=== PATIENT | male | born 1975 | race Caucasian/White ===

== ENCOUNTER 2019-01-26 10:49 | Inpatient (IN) ==
[2019-01-26] MEDS ORDERED: 0.9 % SODIUM CHLORIDE 1,000 ML IV SCH ×2 (11:15→14:21)
--- NOTE | 2019-01-26 11:24 | Emergency Department Note ---
Skin/Abscess/FB HPI - General Chief complaint: Skin/Abscess/Foreign Body Stated complaint: Cellulitis Time Seen by Provider: 01/26/19 10:50 Mode of arrival: wheelchair - History of Present Illness HPI Narrative: 43-year-old male presents with cellulitis of the left lower leg. Patient states he is not getting any better and is getting worse. Onset last Thursday, 1 week ago. States the first 48 hours he had fever, chills, nausea and vomiting. He finally got out of bed and realized that his left lower leg was red and swollen and warm to touch. He came in to be seen on that Thursday and was started on IV outpatient antibiotics. He has been receiving IV vancomycin but they are having a hard time getting the levels high enough. His legs continue to get worse instead of better. States he continues to have nausea and vomiting and fever and chills. No diarrhea. Concerned that he is not getting better. - Related Data Home Medications Medication Instructions Recorded Confirmed Lisinopril [Zestril] 7.5 mg PO DAILY 01/22/15 01/26/19 DULoxetine [Cymbalta] 90 mg PO DAILY 01/26/19 01/26/19 Methocarbamol [Robaxin-750] 750 mg PO DAILY 01/26/19 01/26/19 traMADol [Ultram] 50 mg PO Q6HP PRN 01/26/19 01/26/19 Previous Rx's Medication Instructions Recorded Aspirin [Ecotrin] 325 mg PO BID tab.ec 02/21/15 Allergies Allergy/AdvReac Type Severity Reaction Status Date / Time No Known Drug Allergies Allergy Verified 01/22/19 06:57 Review of Systems All systems ED: reviewed and negative except as stated. Past Medical History - Past Medical History [facility], [facility] Narrative: Medical History Knee osteoarthritis (Acute) Knee osteoarthritis (Acute) Headache (Acute) Dehydration (Acute) Soft tissue injury of knee (Acute) Acute bronchitis (Acute) Medical history: Reports: hypertension, obesity, other (glaucoma. Obstructive sleep apnea) Psychiatric history: Reports: depression Surgical history ED: Reports: non-contributory - Social History smoking status: Never smoker Alcohol use: Reports: Rarely Drug use: Reports: none Physical Exam General appearance: alert Head: atraumatic, normocephalic, normal inspection Eye: Present: normal appearance. Absent: conjunctival injection ENT: Present: mucous membranes moist Chest: Present: symmetric chest wall rise Respiratory: Present: normal lung sounds bilaterally. Absent: respiratory distress, rales/crackles, accessory muscle use Cardiovascular: Present: regular rate, normal heart sounds Extremities: Absent: normal inspection (Left lower leg from the knee to the ankle with significant moderate edema, redness, and hot to touch. No induration or drainage. Sensation intact) Neurological: Present: alert, oriented X3 Psychiatric: Present: normal affect, normal mood Skin: Present: warm, dry, intact, normal color Course Course Narrative: @1312 I spoke with hospitalist Dr. Billy who agrees to accept this patient Vital Signs Temperature 97.7 F 01/26/19 10:50 Pulse Rate 90 01/26/19 10:50 Respiratory Rate 16 01/26/19 10:50 Blood Pressure 141/77 01/26/19 10:50 Pulse Oximetry (%) 95 01/26/19 10:50 Temperature 97.7 F 01/26/19 10:50 Pulse Rate 85 01/26/19 12:49 Respiratory Rate 16 01/26/19 10:50 Blood Pressure 141/77 01/26/19 10:50 Pulse Oximetry (%) 95 01/26/19 12:49 Skin/Abscess/Foreign Body - Lab Data Result diagrams: 01/26/19 11:29 01/26/19 11:02 Lab Results 01/26/19 01/26/19 01/26/19 Range/Units 11:02 11:28 11:29 WBC 7.5 (4.5-11.0) K/mcL RBC 3.83 L (4.50-5.90) M/mcL Hgb 12.0 L (13.5-16.5) g/dL Hct 36.0 L (41.0-55.0) % MCV 93.9 (80.0-100.0) fL MCH 31.4 (26.0-34.0) pg MCHC 33.4 (31.0-36.0) g/dL RDW 13.3 (11.5-14.5) % Plt Count 269 (140-440) K/mcL MPV 7.8 (7.4-10.4) fL Total Counted 100 Seg Neutrophils % 63 (38-78) % Band Neutrophils % Not Reportable Lymphocytes % 22 (15-49) % Monocytes % (Manual) 9 (1-12) % Eosinophils % (Manual) 5 (0-7) % Basophils % (Manual) 1 (0-2) % Platelet Estimate Normal (NORMAL) RBC Morphology Normal (NORMAL) VBG Lactic Acid 1.4 (0.5-2.0) mmol/L Sodium 137 (133-145) mmol/L Potassium 3.9 (3.3-5.1) mmol/L Chloride 98 (96-108) mmol/L Carbon Dioxide 29 (22-30) mmol/L Anion Gap 10.0 (8-16) BUN 13 (6-20) mg/dl Creatinine 1.1 (0.7-1.2) mg/dl GFR Calculation 82 Glucose 86 (70-105) mg/dL Calcium 9.1 (8.6-10.4) mg/dl Total Bilirubin 0.3 (0.0-1.0) mg/dL AST 52 H (0-37) U/l ALT 88 H (0-40) U/l Alkaline Phosphatase 79 (39-117) U/L Total Protein 8.0 (5.9-8.4) gm/dL Albumin 3.5 (3.2-5.2) gm/dL Globulin 4.5 H (2.2-3.7) gm/dL Albumin/Globulin Ratio 0.8 L (1.0-2.3) Procalcitonin (<0.10) ng/mL 01/26/19 Range/Units 11:29 WBC (4.5-11.0) K/mcL RBC (4.50-5.90) M/mcL Hgb (13.5-16.5) g/dL Hct (41.0-55.0) % MCV (80.0-100.0) fL MCH (26.0-34.0) pg MCHC (31.0-36.0) g/dL RDW (11.5-14.5) % Plt Count (140-440) K/mcL MPV (7.4-10.4) fL Total Counted Seg Neutrophils % (38-78) % Band Neutrophils % Lymphocytes % (15-49) % Monocytes % (Manual) (1-12) % Eosinophils % (Manual) (0-7) % Basophils % (Manual) (0-2) % Platelet Estimate (NORMAL) RBC Morphology (NORMAL) VBG Lactic Acid (0.5-2.0) mmol/L Sodium (133-145) mmol/L Potassium (3.3-5.1) mmol/L Chloride (96-108) mmol/L Carbon Dioxide (22-30) mmol/L Anion Gap (8-16) BUN (6-20) mg/dl Creatinine (0.7-1.2) mg/dl GFR Calculation Glucose (70-105) mg/dL Calcium (8.6-10.4) mg/dl Total Bilirubin (0.0-1.0) mg/dL AST (0-37) U/l ALT (0-40) U/l Alkaline Phosphatase (39-117) U/L Total Protein (5.9-8.4) gm/dL Albumin (3.2-5.2) gm/dL Globulin (2.2-3.7) gm/dL Albumin/Globulin Ratio (1.0-2.3) Procalcitonin 0.40 (<0.10) ng/mL Disposition Pt seen by MANAGER ACTION/PA only: Yes Clinical Impression: Cellulitis of left lower extremity, Failure of outpatient treatment Disposition: [facility] Condition: Good Referrals: Myrna Robb PA-C [Primary Care Provider] - Time of Disposition: 13:13
[2019-01-26 12:11] LABS: Mean Cell Volume 93.9 fL (80.0-100.0); Mean Corpuscular HGB Conc 33.4 g/dL (31.0-36.0); Mean Platelet Volume 7.8 fL (7.4-10.4); Platelet Count 269 K/mcL (140-440); RBC 3.83 M/mcL (4.50-5.90); Red Cell Distribution Width 13.3 % (11.5-14.5); WBC 7.5 K/mcL (4.5-11.0)
[2019-01-26 12:32] LABS: Basophils % (Manual) 1 % (0-2); Eosinophils % (Manual) 5 % (0-7); Lymphocytes % 22 % (15-49); Monocytes % (Manual) 9 % (1-12); Platelet Estimate NORMAL (NORMAL); RBC Morphology NORMAL (NORMAL); Segmented Neutrophils % 63 % (38-78)
[2019-01-26 12:34] LABS: ALT/SGPT 88 U/l (0-40); AST/SGOT 52 U/l (0-37); Albumin 3.5 gm/dL (3.2-5.2); Albumin/Globulin Ratio 0.8 (1.0-2.3); Alkaline Phosphatase 79 U/L (39-117); Bilirubin,Total 0.3 mg/dL (0.0-1.0); Blood Urea Nitrogen 13 mg/dl (6-20); Calcium 9.1 mg/dl (8.6-10.4); Carbon Dioxide 29 mmol/L (22-30); Chloride 98 mmol/L (96-108); Globulin 4.5 gm/dL (2.2-3.7); Glomerular Filtration Rate 82; Glucose 86 mg/dL (70-105)
[2019-01-26] MEDS ORDERED: PIPERACILLIN SODIUM/TAZOBACTAM 3.375 GM in DEXTROSE 5% IN WATER 50 ML IV ONE (13:12)
--- NOTE | 2019-01-26 13:16 | Internal Med History&Physical ---
Medical - H&P: [facility] Patient information: Note initiated : 01/26/19 at 1:14 pm Service Date, if different from initiated Date: [] Patient: Deven Irwin 43 y/o M admitted on for Cellulitis. Chief Complaint: [] Chief complaint: LLE cellulitis History of present illness: Mr. Irwin is a 43 year old M morbidly obese gentleman with BMI over 55 who presents to the ER with worsening left lower extremity swelling, redness pain and shaking chills and fever. Patient apparently at the symptoms started a few days ago. He was evaluated in the ER on the fourth and was started on vancomycin outpatient for lower extremity cellulitis. Work-up including negative Doppler for DVT. However despite continue antibiotics patient noticed increasing redness/swelling and pain along with persistent fever. He was subsequently evaluated in the ER today and after blood cultures were drawn hospitalist service was consulted. At the time of evaluation patient is alert and oriented. He was able to endorse history as above. He denies recent trauma, recurrent boils or cysts skin infection. He does endorse to a prior left lower extremity injury leading to a foot drop. He lives at home along with his family. He denies associated arthralgia myalgia headache, cough productive sputum or diarrhea. Review of systems A 10 point review of system was performed and is negative except for one discussed above Medical - H&P: PM[facility] Medical history: Medical history: hypertension, obesity, other (glaucoma. Obstructive sleep apnea) Psychiatric history: Reports: depression Surgical history ED: Reports: non-contributory - Social History smoking status: Never smoker Alcohol use: Reports: Rarely Drug use: Reports: none Medical - H&P: Meds Home Medications Medication Instructions Recorded Confirmed Type Lisinopril [Zestril] 7.5 mg PO DAILY 01/22/15 01/26/19 History Aspirin [Ecotrin] 325 mg PO BID tab.ec 02/21/15 01/26/19 Rx DULoxetine [Cymbalta] 90 mg PO DAILY 01/26/19 01/26/19 History Methocarbamol [Robaxin-750] 750 mg PO DAILY 01/26/19 01/26/19 History traMADol [Ultram] 50 mg PO Q6HP PRN 01/26/19 01/26/19 History Allergies Allergy/AdvReac Type Severity Reaction Status Date / Time No Known Drug Allergies Allergy Verified 01/22/19 06:57 Medical - H&P: Exam - Constitutional Vitals: Temp Pulse Resp BP Pulse Ox 97.7 F 85 16 141/77 95 01/26/19 10:50 01/26/19 12:49 01/26/19 10:50 01/26/19 10:50 01/26/19 12:49 General appearance: morbidly obese Exam: Alert and oriented Morbidly obese Head normocephalic Oral cavity dry Eye movement symmetrical no ear nose discharge Neck no lymphadenopathy S1-S2 regular rhythm no murmur Diminished breath sounds bases Abdomen soft nontender Lower extremity-left lower extremity significantly swollen/tender with erythema extending from ankle to the knee Skin otherwise no suspicious lesion Psych alert cooperative Neuro nonfocal Medical - H&P: Reslt - Labs CBC & Chem 7: 01/26/19 11:29 01/26/19 11:02 Labs: Short CBC 01/26/19 Range/Units 11:29 WBC 7.5 (4.5-11.0) K/mcL Hgb 12.0 L (13.5-16.5) g/dL Hct 36.0 L (41.0-55.0) % Plt Count 269 (140-440) K/mcL BMP 01/26/19 11:02 Sodium 137 Potassium 3.9 Chloride 98 Carbon Dioxide 29 BUN 13 Creatinine 1.1 Glucose 86 Calcium 9.1 Liver Function 01/26/19 Range/Units 11:02 Total Bilirubin 0.3 (0.0-1.0) mg/dL AST 52 H (0-37) U/l ALT 88 H (0-40) U/l Alkaline Phosphatase 79 (39-117) U/L Albumin 3.5 (3.2-5.2) gm/dL Medical - H&P: A/P (1) Cellulitis of left lower extremity Current visit: Yes Status: Acute * Cellulitis left lower extremity -continue antibiotic coverage on vancomycin/Rocephin-, pancultures, limb elevation, lower extremity ultrasound to rule out abscess, wound care consult. De-escalate based on culture sensitivities. * Pain management as needed opioids/Tylenol * Hypertension continue SUHA inhibitor * Anxiety disorder continue duloxetine * Morbid obesity with sleep apnea * Full code * Prophylaxis heparin Plan * Inpatient admission * Antibiotic coverage/limb elevation/diuretics * prior medical condition management and home meds * Wound care consult * Lower extremity ultrasound
[2019-01-26] MEDS ORDERED: ONDANSETRON 4 MG/2 ML VIAL IV PRN (14:21)
[2019-01-26] MEDS ORDERED: VANCOMYCIN PER PHARMACY IV SCH (14:21)
[2019-01-26] MEDS ORDERED: MAGNESIUM SULFATE 2 GM/50 ML BAG IV PRN (14:21)
[2019-01-26] MEDS ORDERED: ACETAMINOPHEN 325 MG TABLET PO PRN (14:21)
[2019-01-26] MEDS ORDERED: POTASSIUM CHLORIDE 20 MEQ PACKET PO PRN (14:21)
[2019-01-26] MEDS: 0.9 % SODIUM CHLORIDE 10 ML SYRINGE IV SCH ×2 (14:31→23:47)
[2019-01-26] MEDS ORDERED: cefTRIAXone 2 GM VIAL ONE (15:11)
[2019-01-26] MEDS: cefTRIAXone 2 GM in DEXTROSE 5% IN WATER 50 ML IV SCH (15:12)
[2019-01-26] MEDS ORDERED: FUROSEMIDE 40 MG/4 ML VIAL IV SCH (16:00)
[2019-01-26] MEDS: VANCOMYCIN 1,500 MG in 0.9 % SODIUM CHLORIDE 500 ML IV SCH ×2 (16:47→23:47)
[2019-01-26 17:22] LABS: Appearance,Urine CLEAR; Bilirubin,Urine NEG (NEG); Color,Urine YELLOW; Glucose,Urine (UA) NEGATIVE (NEG); Ketones,Urine NEG (NEG); Leukocyte Esterase,Urine NEG /uL (NEG); Nitrate,Urine NEG (NEG); Protein,Urine NEG (NEG); Specific Gravity,Urine 1.016 (1.000-1.035); Urine Blood NEG mg/dL (<0.03); Urobilinogen,Urine NEG (NEG)
[2019-01-26 17:28] LABS: Amphetamine Screen,Urine NONE DETECTED (NONDETECTED); Barbiturate Screen,Urine NONE DETECTED (NONDETECTED); Benzodiazepines Screen,Urine NONE DETECTED (NONDETECTED); Cannabinoid Screen,Urine NONE DETECTED (NONDETECTED); Cocaine Screen,Urine NONE DETECTED (NONDETECTED); Opiate Screen,Urine NONE DETECTED (NONDETECTED); Oxycodone, Urine Screen NONE DETECTED (NONDETECTED); Phencyclidine Screen,Urine NONE DETECTED (NONDETECTED)
[2019-01-26] MEDS: traMADol 50 MG TABLET PO PRN (19:52)
[2019-01-26] MEDS: ASPIRIN 325 MG ENTERIC COATED TABLET PO SCH (21:12)
[2019-01-26] MEDS: HEPARIN 5,000 UNIT/ML VIAL SQ SCH (21:12)
[2019-01-26] MEDS: DOCUSATE SODIUM 100 MG CAPSULE PO SCH (21:12)
[2019-01-26] MEDS: MELATONIN 3 MG TABLET PO PRN (21:12)
[2019-01-26] MEDS: SENNOSIDES/DOCUSATE SODIUM 1 TAB TABLET PO SCH (21:12)
[2019-01-26] MEDS: ACETAMINOPHEN 1,000 MG/100 ML BOTTLE IV PRN (21:16)
[2019-01-27] MEDS: ACETAMINOPHEN 1,000 MG/100 ML BOTTLE IV PRN ×2 (04:55→16:22)
[2019-01-27] MEDS: 0.9 % SODIUM CHLORIDE 10 ML SYRINGE IV SCH ×5 (04:55→20:59)
--- NOTE | 2019-01-27 04:55 | Ultrasound Report ---
CLINICAL INFORMATION: Fluid collection left thigh and calf COMPARISON: None. FINDINGS: Cellulitis is seen throughout the left thigh and calf, however there is no fluid collection to suggest discrete abscess IMPRESSION: Diffuse cellulitis. No evidence of abscess Interpreted and Authenticated by: Kulwinder Castillo 01/27/19
[2019-01-27 05:38] LABS: Hematocrit 33.2 % (41.0-55.0); Hemoglobin 11.2 g/dL (13.5-16.5); Mean Corpuscular HGB Conc 33.7 g/dL (31.0-36.0); Mean Platelet Volume 7.4 fL (7.4-10.4); Platelet Count 285 K/mcL (140-440); RBC 3.53 M/mcL (4.50-5.90); Red Cell Distribution Width 13.3 % (11.5-14.5); WBC 5.6 K/mcL (4.5-11.0)
[2019-01-27 06:04] LABS: ALT/SGPT 77 U/l (0-40); AST/SGOT 44 U/l (0-37); Albumin 3.2 gm/dL (3.2-5.2); Albumin/Globulin Ratio 0.8 (1.0-2.3); Alkaline Phosphatase 72 U/L (39-117); Bilirubin,Direct < 0.2 mg/dL (0.0-0.3); Bilirubin,Total 0.3 mg/dL (0.0-1.0); Blood Urea Nitrogen 15 mg/dl (6-20); C-Reactive Protein 11.5 mg/dl (0.0-0.8); Carbon Dioxide 29 mmol/L (22-30); Chloride 100 mmol/L (96-108); Globulin 4.2 gm/dL (2.2-3.7); Glomerular Filtration Rate 105; Glucose 120 mg/dL (70-105); Lactate Dehydrogenase 217 U/L (94-250); Phosphorous 3.8 mg/dL (2.7-4.5); Triglycerides 69 mg/dl (<150); Uric Acid 5.9 mg/dL (2.5-8.0)
[2019-01-27] MEDS: FUROSEMIDE 40 MG/4 ML VIAL IV SCH ×3 (07:55→21:24)
--- NOTE | 2019-01-27 08:07 | Internal Med Progress Note ---
Medical - PN: Subj Patient information: Note initiated : 01/27/19 at 8:04 am Service Date, if different from initiated Date: [] Patient: Deven Irwin 43 y/o M admitted on 01/26/19 for Cellulitis. Chief Complaint: [] Interval history: Mr. Irwin is a 43 year old M morbidly obese gentleman with BMI over 55 who pres ents to the ER with worsening left lower extremity swelling, redness pain and shaking chills and fever. Patient apparently at the symptoms started a few days ago. He was evaluated in the ER on the fourth and was started on vancomycin outpatient for lower extremity cellulitis. Work-up including negative Doppler for DVT. However despite continue antibiotics patient noticed increasing redness/swelling and pain along with persistent fever. He was subsequently evaluated in the ER today and after blood cultures were drawn hospitalist service was consulted. At the time of evaluation patient is alert and oriented. He was able to endorse history as above. He denies recent trauma, recurrent boils or cysts skin infection. He does endorse to a prior left lower extremity injury leading to a foot drop. He lives at home along with his family. 01/27-patient clinically improved. Able to bear weight. Swelling along with redness much improved. White count normal. No overnight fever chills. Pain much improved. No concerns expressed to nursing staff. Continuing antibiotic coverage. Continue diuresis/Limb elevation - Constitutional Vitals: Vital Signs Temp Pulse Resp BP Pulse Ox 97.8 F 76 18 114/63 96 01/27/19 07:14 01/27/19 07:14 01/27/19 07:14 01/27/19 07:14 01/27/19 07:14 Period Temp Pulse Resp BP Sys/[place]oya Pulse Ox Last 24 Hr 97.0 F-98.7 F 61-90 12-20 114-144/63-81 95-100 Intake and Output 01/26/19 01/27/19 01/27/19 21:59 05:59 13:59 Intake Total 1259 725 Output Total 1000 750 Balance 259 -25 Weight 415 lb Intake & Output: Intake & Output 01/26/19 01/27/19 01/27/19 21:59 05:59 13:59 Intake Total 1259 725 Output Total 1000 750 Balance 259 -25 Weight 415 lb Intake: IV 1019 600 Sodium Chloride 0.9% 1,000 ml @ 319 125 mls/hr IV .Q8H [facility] Rx#: [id number] Zosyn 3.375 gm In Dextrose 5% 50 in Water 50 ml @ 100 mls/hr IV ONCE ONE Rx#:[id number] Vancomycin 1,500 mg In Sodium 500 500 Chloride 0.9% 500 ml @ 333.3 mls/hr IV Q8H [facility] Rx#:[id number] Rocephin 2 gm In Dextrose 5% in 50 Water 50 ml @ 100 mls/hr IV Q24H [facility] Rx#:[id number] Oral 240 125 Output: Void Amount 1000 750 Other: Meal Lunch Percent of Meal Consumed 100% Feeding Ability Independent Urine Appearance Clear Clear Urine Color Bright Yellow Light [place] Urine Odor Normal Strong Stool Size Moderate Stool Consistency Formed # Bowel Movements 1 General appearance: no acute distress Exam: Morbidly obese Nonlabored breathing Improving lymphedema/erythema left lower extremity No anxiety Medical - PN: Obj Da - Labs CBC & Chem 7: 01/27/19 04:28 01/27/19 04:29 Labs: Abnormal Lab Results 01/27/19 01/27/19 01/26/19 04:29 04:28 11:29 RBC 3.53 L 3.83 L Hgb 11.2 L 12.0 L Hct 33.2 L 36.0 L Glucose 120 H AST 44 H ALT 77 H C-Reactive Protein 11.5 H Globulin 4.2 H Albumin/Globulin Ratio 0.8 L 01/26/19 11:02 RBC Hgb Hct Glucose AST 52 H ALT 88 H C-Reactive Protein Globulin 4.5 H Albumin/Globulin Ratio 0.8 L Meds: Medications Acetaminophen (Tylenol) 650 mg PO Q4-6HP PRN PRN Reason: PAIN/FEVER > 101 Aspirin (Ecotrin) 325 mg PO BID [facility] Last Admin: 01/26/19 21:12 Dose: 325 mg Documented by: Docusate Sodium (Colace) 100 mg PO BID [facility] Last Admin: 01/26/19 21:12 Dose: 100 mg Documented by: Duloxetine HCl (Cymbalta) 90 mg PO DAILY [facility] Furosemide (Lasix) 20 mg IV Q8 [facility] Last Admin: 01/27/19 07:55 Dose: 20 mg Documented by: Heparin Sodium (Porcine) (Heparin) 5,000 unit SQ Q12 [facility] Last Admin: 01/26/19 21:12 Dose: 5,000 unit Documented by: Acetaminophen (Ofirmev) 1,000 mg in 100 mls @ 200 mls/hr IV Q6HP PRN PRN Reason: PAIN/FEVER > 101 Last Infusion: 01/27/19 05:45 Dose: Infused Documented by: Magnesium Sulfate (Magnesium Sulfate) 2 gm in 50 mls @ 50 mls/hr IV UD PRN PRN Reason: MG = or < 1.7 Ceftriaxone Sodium 2 gm/ (Dextrose) 50 mls @ 100 mls/hr IV Q24H [facility]; Protocol Last Infusion: 01/26/19 15:42 Dose: Infused Documented by: Vancomycin HCl 1,500 mg/ (Sodium Chloride) 500 mls @ 333.3 mls/hr IV Q8H [facility] Last Infusion: 01/27/19 01:50 Dose: Infused Documented by: Iron Carb/Multivit/[place]/Folic Acid (Multivitamin W/Minerals) 1 tab PO DAILY [facility] Lisinopril (Zestril) 7.5 mg PO DAILY [facility] Melatonin (Melatonin 3mg Tablet) 3 mg PO HSP PRN PRN Reason: Insomnia Last Admin: 01/26/19 21:12 Dose: 3 mg Documented by: Methocarbamol (Robaxin) 750 mg PO DAILY [facility] Ondansetron HCl (Zofran) 4 mg IV Q4-6HP PRN PRN Reason: Nausea And Vomiting Potassium Chloride (Klor-Con) 40 meq PO DAILYP PRN PRN Reason: K+ < 3.5 Senna/Docusate Sodium (Senna Plus Tablet) 1 tab PO HS [facility] Last Admin: 01/26/19 21:12 Dose: 1 tab Documented by: Sodium Chloride (Saline Flush) 10 ml IV Q8 [facility] Last Admin: 01/27/19 04:55 Dose: 10 ml Documented by: Tramadol HCl (Ultram) 50 mg PO Q6HP PRN PRN Reason: Pain Last Admin: 01/26/19 19:52 Dose: 50 mg Documented by: Vancomycin HCl (Vancomycin Per Pharmacy) 1 order IV UD [facility]; Protocol Medical - PN: A/P - Time Spent With Patient Total time spent is greater than 50% in coordination of care (as documented) at patient's floor/unit and/or counseling patient: 15 - 24 minutes (1) Cellulitis of left lower extremity Status: Acute Assessment and plan: * Cellulitis with lymphangitis left lower extremity -clinical improvement noted on vancomycin/Rocephin-, pancultures negative so far, continue limb elevation, lower extremity ultrasound negative for abscess * Pain management well controlled on as needed opioids/Tylenol * Hypertension stable on SUHA inhibitor * Anxiety disorder continue duloxetine * Morbid obesity with sleep apnea-continue home CPAP * Full code * Prophylaxis heparin Plan * Limb elevation/diuretics * antibiotic coverage * prior medical condition management and home meds * Discharge planning Current Visit: Yes
[2019-01-27 08:14] LABS: Band Neutrophils % 8 % (0-10); Eosinophils % (Manual) 3 % (0-7); Lymphocytes % 21 % (15-49); Metamyelocytes % 1 % (0-0); Monocytes % (Manual) 4 % (1-12); Myelocytes % 2 % (0-0); Platelet Estimate NORMAL (NORMAL); RBC Morphology NORMAL (NORMAL); Segmented Neutrophils % 61 % (38-78)
[2019-01-27] MEDS: VANCOMYCIN 1,500 MG in 0.9 % SODIUM CHLORIDE 500 ML IV SCH ×3 (08:38→23:56)
[2019-01-27] MEDS: HEPARIN 5,000 UNIT/ML VIAL SQ SCH ×2 (09:24→20:57)
[2019-01-27] MEDS: MULTIVIT,THER IRON,CA,FA & MIN 1 TABLET PO SCH (09:25)
[2019-01-27] MEDS: LISINOPRIL 5 MG TABLET PO SCH (09:25)
[2019-01-27] MEDS: DULoxetine 30 MG CAPSULE PO SCH (09:25)
[2019-01-27] MEDS: DOCUSATE SODIUM 100 MG CAPSULE PO SCH ×2 (09:25→20:57)
[2019-01-27] MEDS: METHOCARBAMOL 750 MG TABLET PO SCH (09:25)
[2019-01-27] MEDS: ASPIRIN 325 MG ENTERIC COATED TABLET PO SCH ×2 (09:25→20:57)
[2019-01-27] MEDS: cefTRIAXone 2 GM in DEXTROSE 5% IN WATER 50 ML IV SCH (10:22)
[2019-01-27] MEDS: traMADol 50 MG TABLET PO PRN ×2 (13:40→17:38)
[2019-01-27] MEDS: MELATONIN 3 MG TABLET PO PRN (20:57)
[2019-01-27] MEDS: SENNOSIDES/DOCUSATE SODIUM 1 TAB TABLET PO SCH (20:57)
[2019-01-28] MEDS: ACETAMINOPHEN 1,000 MG/100 ML BOTTLE IV PRN ×2 (04:20→20:14)
[2019-01-28 05:27] LABS: Hematocrit 34.2 % (41.0-55.0); Hemoglobin 11.4 g/dL (13.5-16.5); Mean Cell Volume 94.3 fL (80.0-100.0); Mean Corpuscular HGB Conc 33.2 g/dL (31.0-36.0); Mean Platelet Volume 7.5 fL (7.4-10.4); Platelet Count 356 K/mcL (140-440); RBC 3.63 M/mcL (4.50-5.90); Red Cell Distribution Width 13.1 % (11.5-14.5); WBC 6.9 K/mcL (4.5-11.0)
[2019-01-28] MEDS: FUROSEMIDE 40 MG/4 ML VIAL IV SCH ×3 (05:32→21:30)
[2019-01-28] MEDS: 0.9 % SODIUM CHLORIDE 10 ML SYRINGE IV SCH ×5 (05:33→21:31)
[2019-01-28 05:42] LABS: ALT/SGPT 76 U/l (0-40); AST/SGOT 40 U/l (0-37); Albumin 3.2 gm/dL (3.2-5.2); Albumin/Globulin Ratio 0.7 (1.0-2.3); Alkaline Phosphatase 71 U/L (39-117); Bilirubin,Direct < 0.2 mg/dL (0.0-0.3); Bilirubin,Total 0.4 mg/dL (0.0-1.0); Blood Urea Nitrogen 16 mg/dl (6-20); Carbon Dioxide 27 mmol/L (22-30); Chloride 99 mmol/L (96-108); Globulin 4.8 gm/dL (2.2-3.7); Glomerular Filtration Rate 105; Glucose 117 mg/dL (70-105); Lactate Dehydrogenase 222 U/L (94-250); Triglycerides 75 mg/dl (<150); Uric Acid 6.5 mg/dL (2.5-8.0)
[2019-01-28 06:57] LABS: Band Neutrophils % 4 % (0-10); Eosinophils % (Manual) 2 % (0-7); Lymphocytes % 14 % (15-49); Monocytes % (Manual) 10 % (1-12); Platelet Estimate NORMAL (NORMAL); RBC Morphology NORMAL (NORMAL); Segmented Neutrophils % 70 % (38-78)
[2019-01-28] MEDS: VANCOMYCIN 1,500 MG in 0.9 % SODIUM CHLORIDE 500 ML IV SCH ×3 (08:16→23:31)
[2019-01-28] MEDS: DOCUSATE SODIUM 100 MG CAPSULE PO SCH ×2 (08:53→20:14)
[2019-01-28] MEDS: ASPIRIN 325 MG ENTERIC COATED TABLET PO SCH ×2 (08:53→20:14)
[2019-01-28] MEDS: DULoxetine 30 MG CAPSULE PO SCH (08:53)
[2019-01-28] MEDS: LISINOPRIL 5 MG TABLET PO SCH ×2 (08:54→13:42)
[2019-01-28] MEDS: HEPARIN 5,000 UNIT/ML VIAL SQ SCH ×2 (08:54→20:14)
[2019-01-28] MEDS: MULTIVIT,THER IRON,CA,FA & MIN 1 TABLET PO SCH (08:54)
[2019-01-28] MEDS: METHOCARBAMOL 750 MG TABLET PO SCH (08:54)
[2019-01-28] MEDS ORDERED: LISINOPRIL 20 MG TABLET PO SCH (09:00)
--- NOTE | 2019-01-28 09:35 | Internal Med Progress Note ---
Medical - PN: Subj Patient information: Note initiated : 01/28/19 at 9:32 am Service Date, if different from initiated Date: [] Patient: Deven Irwin 43 y/o M admitted on 01/26/19 for Cellulitis. Chief Complaint: [] Interval history: Mr. Irwin is a 43 year old M morbidly obese gentleman with BMI over 55 who pres ents to the ER with worsening left lower extremity swelling, redness pain and shaking chills and fever. Patient apparently at the symptoms started a few days ago. He was evaluated in the ER on the fourth and was started on vancomycin outpatient for lower extremity cellulitis. Work-up including negative Doppler for DVT. However despite continue antibiotics patient noticed increasing redness/swelling and pain along with persistent fever. He was subsequently evaluated in the ER today and after blood cultures were drawn hospitalist service was consulted. At the time of evaluation patient is alert and oriented. He was able to endorse history as above. He denies recent trauma, recurrent boils or cysts skin infection. He does endorse to a prior left lower extremity injury leading to a foot drop. He lives at home along with his family. 01/27-patient clinically improved. Able to bear weight. Swelling along with redness much improved. White count normal. No overnight fever chills. Pain much improved. No concerns expressed to nursing staff. Continuing antibiotic coverage. Continue diuresis/Limb elevation 01/28-patient doing better. Improved redness erythema and swelling left lower extremity. No overnight fever chills. Doing well. Ambulating. Tolerating diet. Diuresing well. Continuing antibiotic coverage. Cultures negative so far. Anticipate discharge in 24 hours with outpatient antibiotics. Midline placed. - Constitutional Vitals: Vital Signs Temp Pulse Resp BP Pulse Ox 97.9 F 68 12 153/85 94 01/28/19 08:04 01/28/19 08:04 01/28/19 08:04 01/28/19 08:04 01/28/19 08:04 Period Temp Pulse Resp BP Sys/Montoya Pulse Ox Last 24 Hr 97.9 F-100.3 F 68-97 12-24 123-153/72-89 94-98 Intake and Output 01/27/19 01/28/19 01/28/19 21:59 05:59 13:59 Intake Total 1600 1300 Output Total 850 500 Balance 750 1300 -500 Weight 420 lb 4.8 oz Intake & Output: Intake & Output 01/27/19 01/28/19 01/28/19 21:59 05:59 13:59 Intake Total 1600 1300 Output Total 850 500 Balance 750 1300 -500 Weight 420 lb 4.8 oz Intake: IV 1600 500 Sodium Chloride 0.9% 1,000 ml @ 1000 125 mls/hr IV .Q8H [facility] Rx#: [id number] Vancomycin 1,500 mg In Sodium 500 500 Chloride 0.9% 500 ml @ 333.3 mls/hr IV Q8H [facility] Rx#:[id number] Oral 800 Output: Void Amount 850 500 Other: Meal Dinner Percent of Meal Consumed 100% Feeding Ability Independent Urine Appearance Clear Clear Urine Color Dark Yellow Pale Urine Odor Strong Normal # Voids 1 General appearance: no acute distress Exam: Alert oriented morbidly obese Nondistended abdomen Lt Lower extreMity lymphedema/erythremia improved No anxiety Medical - PN: Obj Da - Labs CBC & Chem 7: 01/28/19 04:15 01/28/19 04:15 Labs: Abnormal Lab Results 01/28/19 01/28/19 01/27/19 04:15 04:15 04:29 RBC 3.63 L Hgb 11.4 L Hct 34.2 L Lymphocytes % 14 L Metamyelocytes % Myelocytes % Glucose 117 H 120 H AST 40 H 44 H ALT 76 H 77 H C-Reactive Protein 11.5 H Globulin 4.8 H 4.2 H Albumin/Globulin Ratio 0.7 L 0.8 L 01/27/19 01/26/19 01/26/19 04:28 11:29 11:02 RBC 3.53 L 3.83 L Hgb 11.2 L 12.0 L Hct 33.2 L 36.0 L Lymphocytes % Metamyelocytes % 1 H Myelocytes % 2 H Glucose AST 52 H ALT 88 H C-Reactive Protein Globulin 4.5 H Albumin/Globulin Ratio 0.8 L Meds: Medications Acetaminophen (Tylenol) 650 mg PO Q4-6HP PRN PRN Reason: PAIN/FEVER > 101 Aspirin (Ecotrin) 325 mg PO BID [facility] Last Admin: 01/28/19 08:53 Dose: 325 mg Documented by: Docusate Sodium (Colace) 100 mg PO BID [facility] Last Admin: 01/28/19 08:53 Dose: 100 mg Documented by: Duloxetine HCl (Cymbalta) 90 mg PO DAILY [facility] Last Admin: 01/28/19 08:53 Dose: 90 mg Documented by: Furosemide (Lasix) 20 mg IV Q8 [facility] Last Admin: 01/28/19 05:32 Dose: 20 mg Documented by: Heparin Sodium (Porcine) (Heparin) 5,000 unit SQ Q12 [facility] Last Admin: 01/28/19 08:54 Dose: 5,000 unit Documented by: Heparin Sodium (Porcine) (Heparin Flush) 2 ml IV Q12 [facility] Last Admin: 01/28/19 08:53 Dose: 2 ml Documented by: Acetaminophen (Ofirmev) 1,000 mg in 100 mls @ 200 mls/hr IV Q6HP PRN PRN Reason: PAIN/FEVER > 101 Last Admin: 01/28/19 04:20 Dose: 200 mls/hr Documented by: Magnesium Sulfate (Magnesium Sulfate) 2 gm in 50 mls @ 50 mls/hr IV UD PRN PRN Reason: MG = or < 1.7 Ceftriaxone Sodium 2 gm/ (Dextrose) 50 mls @ 100 mls/hr IV Q24H [facility]; Protocol Last Infusion: 01/27/19 13:40 Dose: Infused Documented by: Vancomycin HCl 1,500 mg/ (Sodium Chloride) 500 mls @ 333.3 mls/hr IV Q8H [facility] Last Admin: 01/28/19 08:16 Dose: 333.3 mls/hr Documented by: Iron Carb/Multivit/[place]/Folic Acid (Multivitamin W/Minerals) 1 tab PO DAILY [facility] Last Admin: 01/28/19 08:54 Dose: 1 tab Documented by: Lisinopril (Zestril) 7.5 mg PO DAILY [facility] Last Admin: 01/28/19 08:54 Dose: 7.5 mg Documented by: Melatonin (Melatonin 3mg Tablet) 3 mg PO HSP PRN PRN Reason: Insomnia Last Admin: 01/27/19 20:57 Dose: 3 mg Documented by: Methocarbamol (Robaxin) 750 mg PO DAILY [facility] Last Admin: 01/28/19 08:54 Dose: 750 mg Documented by: Ondansetron HCl (Zofran) 4 mg IV Q4-6HP PRN PRN Reason: Nausea And Vomiting Potassium Chloride (Klor-Con) 40 meq PO DAILYP PRN PRN Reason: K+ < 3.5 Senna/Docusate Sodium (Senna Plus Tablet) 1 tab PO HS [facility] Last Admin: 01/27/19 20:57 Dose: 1 tab Documented by: Sodium Chloride (Saline Flush) 10 ml IV Q8 [facility] Last Admin: 01/28/19 05:33 Dose: 10 ml Documented by: Sodium Chloride (Saline Flush) 10 ml IV Q12 [facility] Last Admin: 01/27/19 20:59 Dose: Not Given Documented by: Tramadol HCl (Ultram) 50 mg PO Q6HP PRN PRN Reason: Pain Last Admin: 01/27/19 17:38 Dose: 50 mg Documented by: Vancomycin HCl (Vancomycin Per Pharmacy) 1 order IV UD [facility]; Protocol Medical - PN: A/P - Time Spent With Patient Total time spent is greater than 50% in coordination of care (as documented) at patient's floor/unit and/or counseling patient: 15 - 24 minutes (1) Cellulitis of left lower extremity Status: Acute Assessment and plan: * Cellulitis with lymphangitis left lower extremity -clinical improvement noted on vancomycin/Rocephin-, pancultures negative so far, continue limb elevation, lower extremity ultrasound negative for abscess * Pain management well controlled on as needed opioids/Tylenol * Hypertension continue home dose lisinopril * Anxiety disorder continue duloxetine * Morbid obesity with sleep apnea-continue home CPAP * Full code * Prophylaxis heparin Plan * Continue antibiotic coverage * limb elevation/diuretics * prior medical condition management and home meds * Discharge in 24 hours Current Visit: Yes
[2019-01-28] MEDS: cefTRIAXone 2 GM in DEXTROSE 5% IN WATER 50 ML IV SCH (09:37)
[2019-01-28] MEDS ORDERED: LISINOPRIL 20 MG TABLET PO ONE (10:15)
[2019-01-28] MEDS ORDERED: LISINOPRIL 5 MG TABLET PO ONE (10:15)
[2019-01-28] MEDS: traMADol 50 MG TABLET PO PRN (12:04)
[2019-01-28] MEDS: SENNOSIDES/DOCUSATE SODIUM 1 TAB TABLET PO SCH (20:14)
--- NOTE | 2019-01-29 03:51 | Discharge Summary ---
Medical - DS: Prov Patient information: Note initiated : 01/29/19 at 3:49 am Service Date, if different from initiated Date: [] Patient: Deven Irwin 43 y/o M admitted on 01/26/19 for Cellulitis. Chief Complaint: [] Date of admission: 01/26/19 14:11 Primary care physician: Myrna Robb Consults: 01/26/19 Consult to Physician [CONS] Stat Comment: Consulting Provider: Braxton Billy Reason For Exam: Physician to Consult Medical - DS: Meds - Discharge Medications Active and Home Medications: Home Medications Aspirin [Ecotrin] 325 mg PO BID tab.ec 02/21/15 [Rx Confirmed 01/26/19 Last Taken 01/26/19 07:00] DULoxetine [Cymbalta] 90 mg PO DAILY 01/26/19 [History Confirmed 01/26/19 Last Taken 01/26/19 07:00] Meloxicam [Mobic] 15 mg PO DAILY 01/26/19 [History Confirmed 01/26/19 Last Taken 01/26/19 07:00] Methocarbamol [Robaxin-750] 750 mg PO DAILY 01/26/19 [History Confirmed 01/26/19 Last Taken 01/26/19 07:00] metFORMIN [Glucophage] 1,000 mg PO DAILY 01/26/19 [History Confirmed 01/26/19 Last Taken 01/26/19 07:00] traMADol [Ultram] 50 mg PO Q6HP PRN 01/26/19 [History Confirmed 01/26/19 Last Taken 01/26/19 07:00] Lisinopril [Zestril] 1 tab PO DAILY 01/28/19 [History Confirmed 01/28/19 Last Taken Unknown] Medical - DS: Hosp - Time Spent with Patient Total time spent providing and/or coordinating discharge services: Medical - DS: Exam - Constitutional Vitals: Vital Signs Temp Pulse Resp BP BP Pulse Ox 01/29/19 00:00 98.0 F 73 16 138/83 97 01/28/19 19:41 98.1 F 89 16 146/82 98 01/28/19 16:33 98.2 F 83 14 148/76 99 01/28/19 11:22 98.5 F 82 16 153/74 96 01/28/19 08:04 97.9 F 68 12 153/85 94 10/11/19 04:00 98.2 F 77 20 123/72 98 Intake and Output 01/28/19 01/28/19 01/29/19 13:59 21:59 05:59 Intake Total 1870 1500 500 Output Total 500 625 Balance 1370 875 500 Intake: IV 550 600 500 Vancomycin 1,500 mg In Sodium 500 500 500 Chloride 0.9% 500 ml @ 333.3 mls/hr IV Q8H [facility] Rx#:[id number] Rocephin 2 gm In Dextrose 5% in 50 Water 50 ml @ 100 mls/hr IV Q24H [facility] Rx#:[id number] Oral 720 900 GI Tube Flush 600 Output: Void Amount 500 625 Other: Meal Breakfast Dinner Percent of Meal Consumed 100% 75% Feeding Ability Independent Independent Urine Appearance Clear Clear Urine Color Pale Straw Urine Odor Normal # Bowel Movements 1 Weight 420 lb Patient Weight 01/29/19 05:59 Weight 420 lb Medical - DS: Data Labs on day of discharge: Labs from last 24 hours 01/28/19 01/28/19 04:15 04:15 WBC 6.9 RBC 3.63 L Hgb 11.4 L Hct 34.2 L MCV 94.3 MCH 31.3 MCHC 33.2 RDW 13.1 Plt Count 356 MPV 7.5 Total Counted 100 Seg Neutrophils % 70 Band Neutrophils % 4 Lymphocytes % 14 L Monocytes % (Manual) 10 Eosinophils % (Manual) 2 Platelet Estimate Normal RBC Morphology Normal Sodium 136 Potassium 4.0 Chloride 99 Carbon Dioxide 27 Anion Gap 10.0 BUN 16 Creatinine 0.9 GFR Calculation 105 Glucose 117 H Uric Acid 6.5 Calcium 9.0 Phosphorus 4.0 Magnesium 2.1 Total Bilirubin 0.4 Direct Bilirubin < 0.2 GGT 54 AST 40 H ALT 76 H Alkaline Phosphatase 71 Lactate Dehydrogenase 222 Total Protein 8.0 Albumin 3.2 Globulin 4.8 H Albumin/Globulin Ratio 0.7 L Triglycerides 75 Preliminary micro results at discharge 01/26/19 11:15 Blood Culture - Preliminary Blood 01/26/19 11:29 Blood Culture - Preliminary Blood Medical - DS: A/P - Problem Maintenance (1) Cellulitis of left lower extremity Status: Acute - Follow up Plan Follow up with: Myrna Robb PA-C [Primary Care Provider] - Care Plan Goals: This discharge packet is provided to you to help keep you informed about your care. We want to ensure you get everything you need when you go home. You will also be receiving a call from us in a few days to follow up with you and see how you are doing since your discharge. This gives us a chance to listen to any concerns you maybe experiencing since you were discharged or any additional needs you may have, as well as providing us feedback on your care experience. We strive to always provide excellent care and thank you for your feedback and for choosing [facility]. Prognosis: Good
[2019-01-29] MEDS: ACETAMINOPHEN 1,000 MG/100 ML BOTTLE IV PRN ×2 (04:09→10:15)
[2019-01-29 05:18] LABS: Hematocrit 32.4 % (41.0-55.0); Hemoglobin 10.7 g/dL (13.5-16.5); Mean Cell Volume 94.5 fL (80.0-100.0); Mean Corpuscular HGB Conc 33.1 g/dL (31.0-36.0); Mean Platelet Volume 7.2 fL (7.4-10.4); Platelet Count 369 K/mcL (140-440); RBC 3.43 M/mcL (4.50-5.90); WBC 5.5 K/mcL (4.5-11.0)
[2019-01-29 05:39] LABS: ALT/SGPT 77 U/l (0-40); AST/SGOT 43 U/l (0-37); Albumin 2.9 gm/dL (3.2-5.2); Albumin/Globulin Ratio 0.6 (1.0-2.3); Alkaline Phosphatase 63 U/L (39-117); Bilirubin,Direct < 0.2 mg/dL (0.0-0.3); Bilirubin,Total 0.3 mg/dL (0.0-1.0); Blood Urea Nitrogen 15 mg/dl (6-20); Calcium 8.8 mg/dl (8.6-10.4); Carbon Dioxide 27 mmol/L (22-30); Chloride 101 mmol/L (96-108); Globulin 4.9 gm/dL (2.2-3.7); Glomerular Filtration Rate 105; Glucose 106 mg/dL (70-105); Lactate Dehydrogenase 236 U/L (94-250); Phosphorous 3.6 mg/dL (2.7-4.5); Triglycerides 61 mg/dl (<150); Uric Acid 6.9 mg/dL (2.5-8.0)
[2019-01-29] MEDS: 0.9 % SODIUM CHLORIDE 10 ML SYRINGE IV SCH ×2 (05:47→09:59)
[2019-01-29] MEDS: FUROSEMIDE 40 MG/4 ML VIAL IV SCH (05:47)
[2019-01-29 06:10] LABS: Basophils % (Manual) 1 % (0-2); Eosinophils % (Manual) 6 % (0-7); Lymphocytes % 12 % (15-49); Monocytes % (Manual) 9 % (1-12); Platelet Estimate NORMAL (NORMAL); RBC Morphology NORMAL (NORMAL); Segmented Neutrophils % 72 % (38-78)
[2019-01-29] MEDS: METHOCARBAMOL 750 MG TABLET PO SCH (07:50)
[2019-01-29] MEDS: HEPARIN 5,000 UNIT/ML VIAL SQ SCH (07:50)
[2019-01-29] MEDS: DULoxetine 30 MG CAPSULE PO SCH (07:50)
[2019-01-29] MEDS: MULTIVIT,THER IRON,CA,FA & MIN 1 TABLET PO SCH (07:51)
[2019-01-29] MEDS: ASPIRIN 325 MG ENTERIC COATED TABLET PO SCH (07:51)
[2019-01-29] MEDS: VANCOMYCIN 1,500 MG in 0.9 % SODIUM CHLORIDE 500 ML IV SCH (07:52)
[2019-01-29] MEDS ORDERED: LISINOPRIL 20 MG TABLET PO SCH (09:00)
[2019-01-29] MEDS ORDERED: cefTRIAXone 2 GM VIAL ONE (09:45)
[2019-01-29] MEDS: cefTRIAXone 2 GM in DEXTROSE 5% IN WATER 50 ML IV SCH (09:56)
[2019-01-29] MEDS: DOCUSATE SODIUM 100 MG CAPSULE PO SCH (09:58)
--- NOTE | 2019-01-29 10:13 | Discharge Summary ---
Medical - DS: Prov Patient information: Note initiated : 01/29/19 at 10:11 am Service Date, if different from initiated Date: [] Patient: Deven Irwin 43 y/o M admitted on 01/26/19 for Cellulitis. Chief Complaint: [] Date of admission: 01/26/19 14:11 Discharge date: 01/29/19 Primary care physician: Myrna Robb Consults: 01/26/19 Consult to Physician [CONS] Stat Comment: Consulting Provider: Braxton Billy Reason For Exam: Physician to Consult Medical - DS: Meds - Discharge Medications Prescriptions: Furosemide [Lasix] 20 mg PO BID #14 tab Prescription Printed Linezolid 600 mg PO BID #20 tab Prescription Printed Active and Home Medications: Home Medications Aspirin [Ecotrin] 325 mg PO BID tab.ec 02/21/15 [Rx Confirmed 01/26/19 Last Taken 01/26/19 07:00] DULoxetine [Cymbalta] 90 mg PO DAILY 01/26/19 [History Confirmed 01/26/19 Last Taken 01/26/19 07:00] Meloxicam [Mobic] 15 mg PO DAILY 01/26/19 [History Confirmed 01/26/19 Last Taken 01/26/19 07:00] Methocarbamol [Robaxin-750] 750 mg PO DAILY 01/26/19 [History Confirmed 01/26/19 Last Taken 01/26/19 07:00] metFORMIN [Glucophage] 1,000 mg PO DAILY 01/26/19 [History Confirmed 01/26/19 Last Taken 01/26/19 07:00] traMADol [Ultram] 50 mg PO Q6HP PRN 01/26/19 [History Confirmed 01/26/19 Last Taken 01/26/19 07:00] Lisinopril [Zestril] 1 tab PO DAILY 01/28/19 [History Confirmed 01/28/19 Last Taken Unknown] Furosemide [Lasix] 20 mg PO BID #14 tab 01/29/19 [Rx Last Taken Unknown] Linezolid 600 mg PO BID #20 tab 01/29/19 [Rx Last Taken Unknown] Medical - DS: Hosp Hospital Course: Discharge diagnosis * Cellulitis with lymphangitis left lower extremity -clinical improvement noted on IV antibiotics. De-escalate to oral Zyvox. Discharging with advised to follow-up with primary care physician. * Pain management -initially managed on opioids. Fully resolved * Hypertension managed on home dose lisinopril * Anxiety disorder stable on duloxetine * Morbid obesity with sleep apnea-managed on home CPAP Brief hospital course Mr. Irwin is a 43 year old M morbidly obese gentleman with BMI over 55 who presents to the ER with worsening left lower extremity swelling, redness pain and shaking chills and fever. Patient apparently at the symptoms started a few days ago. He was evaluated in the ER on the fourth and was started on vancomycin outpatient for lower extremity cellulitis. Work-up including negative Doppler for DVT. However despite continue antibiotics patient noticed increasing redness/swelling and pain along with persistent fever. He was subsequently evaluated in the ER today and after blood cultures were drawn hospitalist service was consulted. At the time of evaluation patient is alert and oriented. He was able to endorse history as above. He denies recent trauma, recurrent boils or cysts skin infection. He does endorse to a prior left lower extremity injury leading to a foot drop. He lives at home along with his family. 01/27-patient clinically improved. Able to bear weight. Swelling along with redness much improved. White count normal. No overnight fever chills. Pain much improved. No concerns expressed to nursing staff. Continuing antibiotic coverage. Continue diuresis/Limb elevation 01/28-patient doing better. Improved redness erythema and swelling left lower extremity. No overnight fever chills. Doing well. Ambulating. Tolerating diet. Diuresing well. Continuing antibiotic coverage. Cultures negative so far. Anticipate discharge in 24 hours with outpatient antibiotics. Midline placed. 01/29-patient doing remarkably well. Improved lower extremity lymphedema/erythema along with lymphangitis. No pain. Able to ambulate and tolerate weightbearing. No overnight fever chills or concerns per staff. Discharging on additional 10 days oral Nasalide Discharge diagnosis: . - Time Spent with Patient Total time spent providing and/or coordinating discharge services: Greater than 30 minutes Medical - DS: Exam - Constitutional Vitals: Vital Signs Temp Pulse Resp BP BP BP Pulse Ox 01/29/19 07:06 98.2 F 76 18 113/75 96 01/29/19 04:00 98.8 F 71 16 148/74 96 01/29/19 00:00 98.0 F 73 16 138/83 97 01/28/19 19:41 98.1 F 89 16 146/82 98 01/28/19 16:33 98.2 F 83 14 148/76 99 01/28/19 11:22 98.5 F 82 16 153/74 96 Intake and Output 01/28/19 01/29/19 01/29/19 21:59 05:59 13:59 Intake Total 1500 900 780 Output Total 625 450 Balance 875 900 330 Intake: IV 600 500 Vancomycin 1,500 mg In Sodium 500 500 Chloride 0.9% 500 ml @ 333.3 mls/hr IV Q8H [facility] Rx#:[id number] Oral 900 400 780 Output: Void Amount 625 450 Other: Meal Dinner Breakfast Percent of Meal Consumed 75% 100% Feeding Ability Independent Independent Urine Appearance Clear Urine Color Straw Dark Yellow Urine Odor Strong # Voids 3 4 Weight 420 lb Medical - DS: Data Labs on day of discharge: Labs from last 24 hours 01/29/19 01/29/19 04:22 04:21 WBC 5.5 RBC 3.43 L Hgb 10.7 L Hct 32.4 L MCV 94.5 MCH 31.3 MCHC 33.1 RDW 13.0 Plt Count 369 MPV 7.2 L Total Counted 100 Seg Neutrophils % 72 Band Neutrophils % Not Reportable Lymphocytes % 12 L Monocytes % (Manual) 9 Eosinophils % (Manual) 6 Basophils % (Manual) 1 Platelet Estimate Normal RBC Morphology Normal Sodium 138 Potassium 4.3 Chloride 101 Carbon Dioxide 27 Anion Gap 10.0 BUN 15 Creatinine 0.9 GFR Calculation 105 Glucose 106 H Uric Acid 6.9 Calcium 8.8 Phosphorus 3.6 Magnesium 2.1 Total Bilirubin 0.3 Direct Bilirubin < 0.2 GGT 48 AST 43 H ALT 77 H Alkaline Phosphatase 63 Lactate Dehydrogenase 236 Total Protein 7.8 Albumin 2.9 L Globulin 4.9 H Albumin/Globulin Ratio 0.6 L Triglycerides 61 Preliminary micro results at discharge 01/26/19 11:15 Blood Culture - Preliminary Blood 01/26/19 11:29 Blood Culture - Preliminary Blood Medical - DS: A/P - Patient/Caregiver Discharge Instructions Activity: increase activity as tolerated Diet: Regular Diet Additional Instructions: Weight loss measures Continue oral linezolid 600 twice daily for 10 days Follow-up PCP in 5 to 7 days Prescriptions: Furosemide [Lasix] 20 mg PO BID #14 tab Prescription Printed Linezolid 600 mg PO BID #20 tab Prescription Printed - Problem Maintenance (1) Cellulitis of left lower extremity Status: Acute - Follow up Plan Follow up with: Myrna Robb PA-C [Primary Care Provider] - Disposition: Home, Self-Care Care Plan Goals: This discharge packet is provided to you to help keep you informed about your care. We want to ensure you get everything you need when you go home. You will also be receiving a call from us in a few days to follow up with you and see how you are doing since your discharge. This gives us a chance to listen to any concerns you maybe experiencing since you were discharged or any additional needs you may have, as well as providing us feedback on your care experience. We strive to always provide excellent care and thank you for your feedback and for choosing [facility]. Prognosis: Good Rehab Potential: Fair I certify that the patient requires SNF services: No
[2019-01-29] MEDS ORDERED: FLU VACC QS2019-20(6MOS UP)/PF 60 MCG/0.5 ML SYRINGE IM ONE (13:45)
== END 2019-01-29 15:00 | disposition home or self-care (01) | DRG 603 ==
LOC: ED 10:49 → MEDSUR 14:11
PROVIDERS: ADMIT Internal Medicine; ATTEND Internal Medicine